=== PATIENT | female | born 1975 | race Caucasian/White ===

== ENCOUNTER 2020-03-04 17:31 | Emergency (ER) | payer BC ==
[~2020-03-04] VITALS: Ht 162.6 cm; Wt 83.0 kg
[2020-03-04 17:40] VITALS: Ht 162.6 cm; Wt 83.0 kg
[2020-03-04 18:10] LABS: BASOPHIL % 0.6 % (0.2-1.3); PLATELET COUNT 262 x10^3mcL (179-408); RED CELL DISTRIBUTION WIDTH 11.8 % (12.3-17.7)
[2020-03-04 18:21] LABS: CALCIUM 8.5 mg/dL (8.5-10.1); CARBON DIOXIDE 25.2 mmol/L (21-32); CHLORIDE SERUM 102 mmol/L (98-107); CREATININE SERUM 0.7 mg/dL (0.6-1.0); GFR1 > 60 mL/min; GLUCOSE SERUM 137 mg/dL (74-106); POTASSIUM SERUM 3.2 mmol/L (3.5-5.1); SODIUM SERUM 138 mmol/L (136-145)
[2020-03-04 18:27] LABS: ALBUMIN 3.5 g/dL (3.4-5.0); ALKALINE PHOSPHATASE 83 U/L (46-116); ALT/SGPT 16 U/L (14-59); AST/SGOT 11 U/L (15-37); LIPASE 138 IU/L (73-393); TOTAL PROTEIN, SERUM 7.8 g/dL (6.4-8.2)
[2020-03-04 21:43] VITALS: BP 132/75
== END 2020-03-04 21:43 | disposition home or self-care (01) ==
LOC: ED 17:31
PROVIDERS: Emergency Medicine
DX: K52.9 Noninfective gastroenteritis and colitis, unspecified (principal); Z90.89 Acquired absence of other organs; Z85.3 Personal history of malignant neoplasm of breast; Z88.6 Allergy status to analgesic agent
CPT/HCPCS: J1170; J2270; J2405; J2543; J7030